=== PATIENT | female | born 1940 | race African-American/Black ===

== ENCOUNTER 2016-12-14 07:16 | Emergency (ER) | payer MEDICARE, OTHER ==
[2016-12-14 07:46] VITALS: TEMP 98.5; BMI 24.2
[2016-12-14] MEDS ORDERED: ACETAMINOPHEN 325 MG TABLET (FP) PO ONE (08:31)
[2016-12-14] MEDS ORDERED: ACETAMINOPHEN 325 MG TABLET (FP) ONE (08:36)
--- NOTE | 2016-12-14 08:54 | PDOC ---
History of Present Illness - General Chief Complaint: Headache Stated Complaint: HEAD PAIN Time Seen by Provider: 12/14/16 08:04 History Source: Patient Exam Limitations: No Limitations - History of Present Illness Initial Comments: 12/14/16 08:48 Patient is a 76F with history of NIDDM, HTN and cerebral aneurysm here today complaining of a headache for the past two weeks. The headache onset insidiously , slowly getting worse over the past two weeks. She describes the headache as pounding located at the top of her head. She denies light and sound sensitivity. She denies trauma, fevers, chills, nausea and vomiting. She has no chest pain, shortness of breath, abdominal pain or dysuria. She says that she hasn't had any episodes of confusion. She denies any weakness, focal or general. She reports compliance with her medications. She says that she was evaluated by her primary care doctor, who recommended a CTA. She took a paper saying she needed a CTA to radiology yesterday but was turned away because it was not a prescription. She then presented to the emergency department because her primary care office was closed yesterday. The paper she has says that she needs a CTA in the next 3 months. Past History - Past Medical History Allergies/Adverse Reactions: Allergies Allergy/AdvReac Type Severity Reaction Status Date / Time No Known Allergies Allergy Verified 12/14/16 07:46 Home Medications: Ambulatory Orders Atenolol [Tenormin -] 100 mg PO DAILY 07/27/15 Enalapril Maleate [Vasotec] 20 mg PO BID 07/27/15 Glipizide [Glucotrol -] 10 mg PO BID 07/27/15 Metformin HCl [Glucophage -] 500 mg PO BID 07/27/15 Simvastatin [Zocor -] 10 mg PO HS 07/27/15 Amlodipine Besylate [Norvasc -] 5 mg PO DAILY #30 tablet 07/31/15 Aspirin [ASA -] 81 mg PO DAILY #30 tab.chew 07/31/15 Meclizine HCl [Antivert -] 25 mg PO BID #20 tablet 07/31/15 Diabetes: Yes HTN: Yes Hypercholesterolemia: Yes Other medical history: cerebral aneurysm - Surgical History Abdominal Surgery: Yes - Suicide/Smoking/Psychosocial Hx Smoking History: Never smoked Hx Alcohol Use: No Drug/Substance Use Hx: No Substance Use Type: None Review of Systems - Review of Systems Comments:: 12/14/16 08:52 GENERAL/CONSTITUTIONAL: No fever or chills. No weakness. HEAD, EYES, EARS, NOSE AND THROAT: No change in vision. No sore throat. CARDIOVASCULAR: No chest pain or shortness of breath RESPIRATORY: No cough, wheezing, or hemoptysis. GASTROINTESTINAL: No nausea, vomiting, diarrhea or constipation. GENITOURINARY: No dysuria, frequency, or change in urination. MUSCULOSKELETAL: No joint or muscle swelling or pain. No neck or back pain. SKIN: No rash NEUROLOGIC: Positive for headahce. Negative for vertigo, loss of consciousness, or change in strength/sensation. HEMATOLOGIC/LYMPHATIC: No anemia, easy bleeding, or history of blood clots. ALLERGIC/IMMUNOLOGIC: No hives or skin allergy. *Physical Exam - Vital Signs Last Vital Signs Temp Pulse Resp BP Pulse Ox 98.5 F 83 18 148/75 100 12/14/16 07:25 12/14/16 07:25 12/14/16 07:25 12/14/16 07:25 12/14/16 07:25 - Physical Exam Comments: 12/14/16 08:53 GENERAL: Awake, alert, and fully oriented, in no acute distress HEAD: No signs of trauma, normocephalic, atraumatic EYES: PERRLA, EOMI, sclera anicteric, conjunctiva clear ENT: Auricles normal inspection, hearing grossly normal, nares patent, oropharynx clear without exudates. Moist mucosa NECK: Normal ROM, supple, no lymphadenopathy, JVD, or masses LUNGS: No distress, speaks full sentences, clear to auscultation bilaterally HEART: Regular rate and rhythm, normal S1 and S2, no murmurs, rubs or gallops, peripheral pulses normal and equal bilaterally. ABDOMEN: Soft, nontender, normoactive bowel sounds. No guarding, no rebound. No masses EXTREMITIES: Normal inspection, Normal range of motion, no edema. No clubbing or cyanosis. NEUROLOGICAL: Cranial nerves II through XII grossly intact. Normal speech, normal gait, no focal sensorimotor deficits. No cerebellar signs, no dysdiadochokinesia SKIN: Warm, Dry, normal turgor, no rashes or lesions noted. ED Treatment Course - LABORATORY CBC & Chemistry Diagram: 12/14/16 08:34 12/14/16 08:34 - RADIOLOGY Radiology Studies Ordered: Category Date Time Status HEAD CT WITHOUT CONTRAST [CT] Stat CT Scan 12/14/16 08:25 Ordered - Medications Given in the ED: ED Medications Discontinued Medications Generic Name Dose Route Start Last Admin Trade Name Everardo PRN Reason Stop Dose Admin Acetaminophen 650 mg 12/14/16 08:31 10 08:40 Tylenol - PO 12/14/16 08:32 650 mg ONCE ONE Administration Medical Decision Making - Medical Decision Making 12/14/16 08:54 Patient is a 76F with history of HTN, NIDDM, and Cerebral aneurysm here today complaining of headache. Vital signs stable and normal. History is not consistent with intracranial hemorrhage, full neuro exam is normal. Differential diagnosis includes, but is not limited to: primary headache, worsening cerebral aneurysm, occult trauma causing subdural hematoma. Will evaluate with labs, head ct, ekg. EKG shows first degree av block (WI =220), normal rate, normal axis. EKG shows diffusely flattened t waves. 12/14/16 09:52 Laboratory Tests 12/14/16 12/14/16 08:34 08:34 WBC 8.5 D Hgb 12.0 D Hct 36.5 Plt Count 344 D BUN 9 D Creatinine 0.9 Random Glucose 218 H cbc normal, cmp notable for elevated glucose, kidney function normal, sent to cta. 12/14/16 10:56 Laboratory Tests 12/14/16 08:34 INR 1.18 H INR slightly elevated, ua negative. 12/14/16 12:04 CTA shows stable aneurysm, progression of chronic microvascular changes. Patient 's headache has resolved with tylenol. Will discharge home with PCP follow up and return precautions. Patient is improved, alert and ambulatory at discharge. *DC/Admit/Observation/Transfer Diagnosis at time of Disposition: Headache - Discharge Dispostion Disposition: HOME Condition at time of disposition: Good Admit: No - Referrals Referrals: Marcin Vaca MD [Primary Care Provider] - - Patient Instructions Printed Discharge Instructions: DI for Headache Additional Instructions: I'm glad that you're feeling better. I've printed out a report of your CTA to give to your primary care provider. Please follow up with your primary care provider within 1-2 days concerning your headaches and take tylenol as needed for pain Return to the emergency department if you have any new, worsening, or concerning symptoms -Dr Shankar
--- NOTE | 2016-12-14 09:05 | PDOC ---
Attending Attestation - Resident Resident Name: Barrie Shankar - ED Attending Attestation I have performed the following: I have examined & evaluated the patient, The case was reviewed & discussed with the resident, I agree w/resident's findings & plan, Exceptions are as noted - HPI HPI: 12/14/16 08:58 76yo F hx NIDDM, HTN and cerebral aneurysm p/w 2 weeks of progressive, gradual onset headache. Reports throbbing pain on the top of her head. Patient saw her primary care doctor yesterday who wrote her a prescription for a CTA of her head. The patient reports she came to our radiology department yesterday but no one performed a CT study because she did not have the right prescription and so she presents to the emergency department this morning for a CTA. She denies any change in the quality or severity of the headache today. Reports similar headaches in the past, but none for this long. Denies any nausea, vomiting, visual changes, focal weakness or numbness. Denies chest pain, shortness of breath. Denies nausea, vomiting, diarrhea. Denies fevers or chills. - Physicial Exam PE: 12/14/16 09:38 GENERAL: Awake, alert, and fully oriented, in no acute distress HEAD: No signs of trauma EYES: PERRLA, EOMI, sclera anicteric, conjunctiva clear ENT: Auricles normal inspection, hearing grossly normal, nares patent, oropharynx clear without exudates. Moist mucosa NECK: Normal ROM, supple, no lymphadenopathy, JVD, or masses LUNGS: Breath sounds equal, clear to auscultation bilaterally. No wheezes, and no crackles HEART: Regular rate and rhythm, normal S1 and S2, no murmurs, rubs or gallops ABDOMEN: Soft, nontender, normoactive bowel sounds. No guarding, no rebound. No masses EXTREMITIES: Normal range of motion, no edema. No clubbing or cyanosis. No cords, erythema, or tenderness NEUROLOGICAL: Normal speech, cranial nerves intact, negative pronator drift, 5/ 5 strength in all 4 extremities, normal sensation to light touch in all 4 extremities, normal cerebellar exam, normal gait, normal reflexes and tone SKIN: Warm, Dry, normal turgor, no rashes or lesions noted. - Medical Decision Making 12/14/16 09:39 76-year-old female with a history of cerebral aneurysm presents with 2 weeks of progressive headache. Vitals and exam including neurologic exam within normal limits. Given the history of aneurysm, will obtain a CTA to ensure stability of the aneurysms as we have a CTA in our system from 2 years ago. Differential also includes tension headache versus migraine headache versus space occupying lesion. -labs -CTA -pain control -reassess 12/14/16 12:16 CTA stable. Headache greatly improved with tylenol. Pt very reassured to hear about stability of aneurysms on CTA. I discussed the physical exam findings, ancillary test results and final diagnoses with the patient. I answered all of the patient's questions. The patient was satisfied with the care received and felt comfortable with the discharge plan and treatment plan. The patient will call their primary care physician within 24 hours to arrange follow-up and will return to the Emergency Department with any new, persistent or worsening symptoms.
[2016-12-14 09:11] LABS: MCH 27.5 pg (25.7-33.7); MCHC 32.9 g/dl (32.0-36.0); MEAN CELL VOLUME 83.5 fl (80-96); MEAN PLT VOLUME 7.4 fl (7.5-11.1); PLATELET COUNT 344 K/MM3 (134-434); RDW 13.3 % (11.6-15.6); WHITE BLOOD COUNT 8.5 K/mm3 (4.0-10.0)
[2016-12-14 09:28] LABS: ALBUMIN 3.9 g/dl (3.4-5.0); ANION GAP 8 (8-16); BILIRUBIN,TOTAL 0.4 mg/dL (0.2-1.0); CALCIUM 9.2 mg/dL (8.5-10.1); CO2 26 mmol/L (21-32); CREATININE 0.9 mg/dL (0.55-1.02); GLUCOSE,RANDOM 218 mg/dL (74-106); SGOT/AST 15 U/L (15-37); SGPT/ALT 21 U/L (12-78); TOT PROT 7.7 g/dl (6.4-8.2)
[2016-12-14 09:29] LABS: ALK PHOS 77 U/L (45-117)
[2016-12-14 09:58] LABS: URINE APPEARANCE CLEAR; URINE BILIRUBIN NEGATIVE (NEGATIVE); URINE BLOOD NEGATIVE (NEGATIVE); URINE COLOR STRAW; URINE GLUCOSE (UA) NEGATIVE (NEGATIVE); URINE KETONE NEGATIVE (NEGATIVE); URINE NITRITE NEGATIVE (NEGATIVE); URINE PROTEIN NEGATIVE (NEGATIVE); URINE UROBILINOGEN NEGATIVE mg/dL (0.2-1.0)
[2016-12-14 10:06] LABS: INR 1.18 (0.82-1.09)
[2016-12-14 12:39] VITALS: BP 131/69; PULSE 80
[2016-12-14 14:59] LABS: URINE LEUK ESTERASE Negative (NEGATIVE)
--- NOTE | 2016-12-14 15:38 | EKG ---
Test Reason : Blood Pressure : / mmHG Vent. Rate : 075 BPM Atrial Rate : 075 BPM P-R Int : 218 ms QRS Dur : 084 ms QT Int : 372 ms P-R-T Axes : 055 017 -19 degrees QTc Int : 415 ms SINUS RHYTHM WITH 1ST DEGREE A-V BLOCK DIFFUSE NONSPECIFIC ST-T ABNORMALITIES IN INFEROLATERAL LEADS ABNORMAL ECG NO PREVIOUS ECGS AVAILABLE CLINICAL CORRELATION AND FOLLOW UP EKG INDCATED . Confirmed by KIMBERLY GONSALES MD ([id number]) on 12/14/2016 3:38:01 PM Referred By: Confirmed By:KIMBERLY GONSALES MD
== END 2016-12-14 12:39 | disposition home or self-care (01) ==
LOC: JER 07:16
DX: R51 Headache (principal); I10 Essential (primary) hypertension; E11.9 Type 2 diabetes mellitus without complications; Z86.79 Personal history of other diseases of the circulatory system; Z79.82 Long term (current) use of aspirin; Z79.84 Long term (current) use of oral hypoglycemic drugs
CPT/HCPCS: 36415; 70496-TC; 80053; 81003; 85027; 85610; 93005; 93010; 99283-25

== ENCOUNTER 2017-02-12 19:07 | Emergency (ER) | payer MEDICARE, OTHER ==
[2017-02-12 20:27] VITALS: BP 106/61; PULSE 71; TEMP 97.8; BMI 26.2
--- NOTE | 2017-02-12 20:37 | PDOC ---
History of Present Illness - General History Source: Patient Exam Limitations: No Limitations - History of Present Illness Initial Comments: 02/12/17 21:03 The patient is a 76 year old female with history of hypertension, hyperlipidemia , DM brought in by her son after ingesting a marijuana brownie this evening. Son reports weed brownies were given to him and his mother got into them. Subsequently the patient became altered and her son brought her to the ED for evaluation. No behavioral changes prior to ingesting weed brownie. No alcohol consumption tonight. Patient is altered and unable to provide remainder of history. <Yolie Brice - Last Filed: 02/12/17 21:03> <Delores Webb - Last Filed: 02/13/17 00:17> - General Chief Complaint: Substance Abuse Stated Complaint: SUBSTANCE ABUSE Time Seen by Provider: 02/12/17 20:25 Past History <Yolie Brice - Last Filed: 02/12/17 21:03> - Past Medical History Diabetes: Yes HTN: Yes Hypercholesterolemia: Yes - Surgical History Abdominal Surgery: Yes - Suicide/Smoking/Psychosocial Hx Smoking History: Never smoked Have you smoked in the past 12 months: No Information on smoking cessation initiated: No Hx Alcohol Use: No Drug/Substance Use Hx: No Substance Use Type: None <Delores Webb - Last Filed: 02/13/17 00:17> - Past Medical History Allergies/Adverse Reactions: Allergies Allergy/AdvReac Type Severity Reaction Status Date / Time No Known Allergies Allergy Verified 02/12/17 20:18 Home Medications: Ambulatory Orders Atenolol [Tenormin -] 100 mg PO DAILY 07/27/15 Enalapril Maleate [Vasotec] 20 mg PO BID 07/27/15 Glipizide [Glucotrol -] 10 mg PO BID 07/27/15 Metformin HCl [Glucophage -] 500 mg PO BID 07/27/15 Simvastatin [Zocor -] 10 mg PO HS 07/27/15 Amlodipine Besylate [Norvasc -] 5 mg PO DAILY #30 tablet 07/31/15 Aspirin [ASA -] 81 mg PO DAILY #30 tab.chew 07/31/15 Meclizine HCl [Antivert -] 25 mg PO BID #20 tablet 07/31/15 Review of Systems - Review of Systems Able to Perform ROS?: Yes Comments:: 02/12/17 21:05 Unable to obtain ROS secondary to AMS. <Yolie Brice - Last Filed: 02/12/17 21:03> *Physical Exam - Vital Signs Last Vital Signs Temp Pulse Resp BP Pulse Ox 97.8 F 71 18 106/61 97 02/12/17 20:00 02/12/17 20:00 02/12/17 20:00 02/12/17 20:00 02/12/17 20:00 - Physical Exam Comments: 02/12/17 21:05 Constitutional: Awake, not oriented. Responding to internal and external stimuli. Head: Normocephalic. Atraumatic Eyes: PERRL. EOMI. Conjunctivae are not pale. ENT: Mucous membranes are moist and intact. Posterior pharynx without exudates or erythema. Uvula midline. Neck: Supple. Full ROM. No lymphadenopathy. Cardiovascular: Regular rate. Regular rhythm. S1, S2 regular. Distal pulses are 2+ and symmetric. Pulmonary/Chest: No evidence of respiratory distress. Clear to auscultation bilaterally No wheezing, rales or rhonchi. Abdominal: Soft and non-distended. There is no tenderness. No rebound, guarding or rigidity. No organomegaly. No palpable masses. Good bowel sounds. Back: No CVA tenderness. Musculoskeletal: No edema. No cyanosis. No clubbing. Full range of motion in all extremities. Nocalf tenderness. Radial/pedal pulses are intact and 2+ bilaterally Skin: Skin is warm and dry. No petechiae. No purpura. Neurological: Responding to internal and external stimuli. Cranial nerves II- XII are grossly intact. No slurred speech. Strength is grossly symmetric. Psychiatric: Behavior as noted above. <Yolie Brice - Last Filed: 02/12/17 21:03> - Vital Signs Last Vital Signs Temp Pulse Resp BP Pulse Ox 97.8 F 71 18 106/61 97 02/12/17 20:00 02/12/17 20:00 02/12/17 20:00 02/12/17 20:00 02/12/17 20:00 <Delores Webb - Last Filed: 02/13/17 00:17> ED Treatment Course - LABORATORY CBC & Chemistry Diagram: 02/12/17 21:38 02/12/17 23:20 <Delores Webb - Last Filed: 02/13/17 00:17> Medical Decision Making - Medical Decision Making 02/12/17 20:36 a/p: 76yo female with ingestion of marijuana in brownie -now responding to external or internal stimuli -will check labs and monitor -drug screen 02/12/17 22:35 drug screen + marijuana 02/13/17 00:14 pt labs stable tolerated po intake in the ed drinking water drank water in the ED stable for d/c to home recommended avoiding brownies with marijuana in the future elevated glucose without anion gap <Delores Webb - Last Filed: 02/13/17 00:17> *DC/Admit/Observation/Transfer - Attestations Scribe Attestion: 02/12/17 21:07 Documentation prepared by oYlie Brice, acting as vice president medical affairs for Delores Webb DO. <Yolie Brice - Last Filed: 02/12/17 21:03> - Discharge Dispostion Admit: No - Attestations Physician Attestion: 02/13/17 00:17 I, Dr. Delores Webb, DO, attest that this document has been prepared under my direction and personally reviewed by me in its entirety. I further attest, that it accurately reflects all work, treatment, procedures and medical decision -making performed by me. <Delores Webb - Last Filed: 02/13/17 00:17> Diagnosis at time of Disposition: Marijuana use - Discharge Dispostion Disposition: HOME Condition at time of disposition: Stable - Referrals Referrals: Nirmala Kathleen [Primary Care Provider] - - Patient Instructions Printed Discharge Instructions: DI for Adverse Drug Reaction -- Other Additional Instructions: Please avoid marijuana in the future. Please make sure to take all your meds. Please increase your water intake and watch your sugars. Please make an appointment to follow up with your PMD in 1-2 days. Please return to the ED with any further concerns or complaints. - Post Discharge Activity
[2017-02-12 21:56] LABS: BASOPHIL 1.4 % (0-2.0); EOSINOPHIL 0.6 % (0-4.5); MCHC 33.4 g/dl (32.0-36.0); MEAN CELL VOLUME 83.6 fl (80-96); NEUTROPHILS 71.4 % (42.8-82.8); PLATELET COUNT 437 K/MM3 (134-434); RDW 13.8 % (11.6-15.6); URINE APPEARANCE CLEAR; URINE BILIRUBIN NEGATIVE (NEGATIVE); URINE BLOOD NEGATIVE (NEGATIVE); URINE COLOR LTYELLOW; URINE GLUCOSE (UA) 3+ (NEGATIVE); URINE KETONE NEGATIVE (NEGATIVE); URINE LEUK ESTERASE NEGATIVE (NEGATIVE); URINE NITRITE NEGATIVE (NEGATIVE); URINE PROTEIN NEGATIVE (NEGATIVE); URINE UROBILINOGEN 4.0 E.U/dl mg/dL (0.2-1.0); WHITE BLOOD COUNT 9.2 K/mm3 (4.0-10.0)
[2017-02-12 22:12] LABS: URINE MARIJUANA THC POSITIVE ng/ml (CUTOFF=50)
[2017-02-12 23:57] LABS: ALK PHOS 77 U/L (45-117); ANION GAP 9 (8-16); BILIRUBIN,TOTAL 0.3 mg/dL (0.2-1.0); CALCIUM 8.8 mg/dL (8.5-10.1); CO2 26 mmol/L (21-32); CREATININE 0.9 mg/dL (0.55-1.02); MAGNESIUM 1.9 mg/dL (1.8-2.4); SGOT/AST 12 U/L (15-37); SGPT/ALT 21 U/L (12-78); TOT PROT 7.4 g/dl (6.4-8.2)
[2017-02-13] LABS: GLUCOSE,RANDOM 337 mg/dL (74-106)
[2017-02-13 12:56] LABS: URINE LEUK ESTERASE Negative (NEGATIVE)
== END 2017-02-13 00:31 | disposition home or self-care (01) ==
LOC: JER 19:07
DX: F12.10 Cannabis abuse, uncomplicated (principal); I10 Essential (primary) hypertension; E78.5 Hyperlipidemia, unspecified; E11.9 Type 2 diabetes mellitus without complications; Z79.84 Long term (current) use of oral hypoglycemic drugs
CPT/HCPCS: 36415; 80053; 80307; 81003; 83735; 85025; 99281-25

== ENCOUNTER 2020-02-16 10:50 | Inpatient (IN) | payer MEDICARE, OTHER ==
[2020-02-16] MEDS ORDERED: LACTATED RINGERS SOLUTION 1,000 ML IV STA (11:30)
[2020-02-16] MEDS ORDERED: ACETAMINOPHEN 1000 MG/100 ML BAG IVPB ONE (11:30)
[2020-02-16] MEDS ORDERED: ACETAMINOPHEN INJECTION 100 ML IVPB ONE (11:37)
[2020-02-16 13:13] LABS: VENOUS BASE EXCESS -0.9 mmol/L (-2-2); VENOUS O2 SATURATION 40.1 % (70-80); VENOUS PCO2 48.4 mmHg (38-52); VENOUS PH 7.343 (7.310-7.410)
[2020-02-16 13:18] LABS: BASO % 0.5 % (0-2.0); EOS % 0.5 % (0-4.5); HEMATOCRIT 38.5 % (32.4-45.2); HEMOGLOBIN 12.6 GM/dL (10.7-15.3); LYMPH % 13.5 % (8-40); MCH 27.5 pg (25.7-33.7); MCHC 32.9 g/dl (32.0-36.0); MEAN CELL VOLUME 83.7 fl (80-96); MEAN PLT VOLUME 8.2 fl (7.5-11.1); MONO % 7.7 % (3.8-10.2); NEUT % 77.8 % (42.8-82.8); PLATELET COUNT 356 K/MM3 (134-434); RBC 4.59 M/mm3 (3.60-5.2); RDW 14.1 % (11.6-15.6); WHITE BLOOD COUNT 6.2 K/mm3 (4.0-10.0)
[2020-02-16 13:29] LABS: INR 1.15 (0.83-1.09); PROTHROMBIN TIME (PATIENT) 13.9 SEC (9.7-13.0)
[2020-02-16 13:42] LABS: CHLORIDE 100 mmol/L (98-107); SODIUM 133 mmol/L (136-145)
[2020-02-16 13:45] LABS: ALBUMIN 3.6 g/dl (3.4-5.0); ANION GAP 9 MMOL/L (8-16); BLOOD UREA NITROGEN 10.4 mg/dL (7-18); CALCIUM 8.7 mg/dL (8.5-10.1); CO2 24 mmol/L (21-32); GLUCOSE,RANDOM 174 mg/dL (74-106)
[2020-02-16 13:48] LABS: CREATININE 0.9 mg/dL (0.55-1.3); SGOT/AST 32 U/L (15-37); SGPT/ALT 27 U/L (13-61)
[2020-02-16 13:49] LABS: BILIRUBIN,DIRECT 0.3 mg/dL (0.0-0.2); BILIRUBIN,TOTAL 0.8 mg/dL (0.2-1); TOT PROT 7.7 g/dl (6.4-8.2)
[2020-02-16 13:50] LABS: ALK PHOS 73 U/L (45-117)
[2020-02-16 14:27] LABS: URINE APPEARANCE Clear; URINE BILIRUBIN Negative (NEGATIVE); URINE COLOR Yellow; URINE GLUCOSE (UA) Negative (NEGATIVE); URINE KETONE 1+ (NEGATIVE); URINE LEUK ESTERASE Negative (NEGATIVE); URINE NITRITE Negative (NEGATIVE); URINE PROTEIN 2+ (NEGATIVE); URINE UROBILINOGEN 0.2 mg/dL (0.2-1.0)
[2020-02-16] MEDS ORDERED: OSELTAMIVIR PHOSPHATE 75 MG CAPSULE PO ONE (14:40)
[2020-02-16 15:07] LABS: LDH 289 U/L (84-246)
[2020-02-16 16:15] LABS: EPI CELLS 51 /uL (0-25.1); HYALINE CASTS 4 /uL (0-3.1); URINE BACTERIA 21 /uL (0-1359); URINE RBC 3 /uL (0-23.9); URINE WBC 50 /uL (0-25.8)
[2020-02-16] MEDS ORDERED: FAMOTIDINE 20 MG TABLET PO ONE (16:29)
[2020-02-16] MEDS ORDERED: MAG HYDROX/AL HYDROX/SIMETH 30 ML UNIT-DOSE CUP PO ONE (16:30)
[2020-02-16] MEDS ORDERED: DEXAMETHASONE SOD PHOSPHATE 10 MG/1 ML VIAL IVPUSH ONE (16:32)
[2020-02-16] MEDS: INSULIN SLIDING SCALE (NOVOLOG) 1 VIAL SQ SCH (17:20)
[2020-02-16] MEDS: CEFTRIAXONE 1 GM in DEXTROSE 5%-WATER - 50 ML IVPB SCH (17:30)
[2020-02-16] MEDS: ENOXAPARIN NA (PORCINE) 40 MG/0.4 ML DISP.SYRIN SQ SCH (17:30)
[2020-02-16] MEDS ORDERED: FAMOTIDINE 20 MG TABLET ONE (17:32)
[2020-02-16] MEDS ORDERED: DEXAMETHASONE SOD PHOSPHATE 10 MG/1 ML VIAL ONE (17:32)
[2020-02-16] MEDS ORDERED: ENOXAPARIN NA (PORCINE) 40 MG/0.4 ML DISP.SYRIN SQ ONE (17:33)
[2020-02-16] MEDS ORDERED: CEFTRIAXONE 1 GM/50 ML BAG ONE (17:33)
[2020-02-16] MEDS ORDERED: AZITHROMYCIN IVPB 500 MG/250 ML BAG IVPB ONE (17:33)
[2020-02-16] MEDS ORDERED: MAG HYDROX/AL HYDROX/SIMETH 30 ML UNIT-DOSE CUP ONE (17:33)
[2020-02-16] MEDS: AZITHROMYCIN IVPB 500 MG/250 ML BAG IVPB SCH (18:00)
[2020-02-16] MEDS ORDERED: DOCUSATE SODIUM 100 MG CAPSULE (FP) PO PRN (22:09)
[2020-02-17] MEDS: INSULIN SLIDING SCALE (NOVOLOG) 1 VIAL SQ SCH ×5 (00:34→22:03)
[2020-02-17] MEDS ORDERED: ACETAMINOPHEN 325 MG TABLET (FP) PO PRN (04:05)
[2020-02-17 08:20] LABS: BASO % 0.7 % (0-2.0); HEMOGLOBIN 11.5 GM/dL (10.7-15.3); LYMPH % 24.3 % (8-40); MCH 27.3 pg (25.7-33.7); MCHC 32.9 g/dl (32.0-36.0); MEAN CELL VOLUME 82.8 fl (80-96); MONO % 8.1 % (3.8-10.2); NEUT % 66.9 % (42.8-82.8); PLATELET COUNT 379 K/MM3 (134-434); RBC 4.22 M/mm3 (3.60-5.2); RDW 13.6 % (11.6-15.6); WHITE BLOOD COUNT 3.1 K/mm3 (4.0-10.0)
[2020-02-17 08:29] LABS: INR 1.15 (0.83-1.09); PROTHROMBIN TIME (PATIENT) 14.1 SEC (9.7-13.0)
[2020-02-17 08:35] LABS: ALBUMIN 3.2 g/dl (3.4-5.0); BLOOD UREA NITROGEN 12.4 mg/dL (7-18); CALCIUM 8.5 mg/dL (8.5-10.1); MAGNESIUM 2.2 mg/dL (1.8-2.4)
[2020-02-17 08:38] LABS: CREATININE 0.8 mg/dL (0.55-1.3)
[2020-02-17 08:39] LABS: PHOSPHOROUS 2.9 mg/dL (2.5-4.9)
[2020-02-17 08:40] LABS: BILIRUBIN,TOTAL 0.5 mg/dL (0.2-1); TOT PROT 6.9 g/dl (6.4-8.2)
[2020-02-17 08:42] LABS: CHOLESTEROL 89 mg/dL (50-200)
[2020-02-17 08:43] LABS: LDL CHOLESTEROL (ONLY SJRH) 44 mg/dL (5-100); TRIGLYCERIDES 67 mg/dL (0-150)
[2020-02-17 08:46] LABS: HDL CHOLESTEROL 34 mg/dL (40-60)
[2020-02-17] MEDS ORDERED: ASCORBIC ACID 500 MG TABLET (FP) ONE (09:00)
[2020-02-17] MEDS ORDERED: CEFTRIAXONE 1 GM/50 ML BAG ONE (09:01)
[2020-02-17] MEDS ORDERED: DEXAMETHASONE SOD PHOSPHATE 4 MG/1 ML VIAL ONE (09:01)
[2020-02-17] MEDS ORDERED: ZINC SULFATE 220 MG CAPSULE (FP) ONE (09:01)
[2020-02-17] MEDS ORDERED: PANTOPRAZOLE 40 MG TABLET ONE (09:01)
[2020-02-17] MEDS ORDERED: ENOXAPARIN NA (PORCINE) 40 MG/0.4 ML DISP.SYRIN SQ ONE (09:01)
[2020-02-17] MEDS ORDERED: INSULIN SLIDING SCALE (NOVOLOG) 1 VIAL SQ ONE (09:02)
[2020-02-17] MEDS: ZINC SULFATE 220 MG CAPSULE (FP) PO SCH (09:28)
[2020-02-17] MEDS: ENOXAPARIN NA (PORCINE) 40 MG/0.4 ML DISP.SYRIN SQ SCH (09:28)
[2020-02-17] MEDS: ASCORBIC ACID 500 MG TABLET (FP) PO SCH ×2 (09:29→21:29)
[2020-02-17] MEDS: PANTOPRAZOLE 40 MG TABLET PO SCH (09:29)
[2020-02-17] MEDS: OSELTAMIVIR PHOSPHATE 30 MG CAPSULE PO SCH ×2 (09:29→21:29)
[2020-02-17] MEDS ORDERED: AZITHROMYCIN IVPB 500 MG/250 ML BAG IVPB ONE (09:30)
[2020-02-17] MEDS: CEFTRIAXONE 1 GM in DEXTROSE 5%-WATER - 50 ML IVPB SCH (09:40)
[2020-02-17] MEDS ORDERED: DEXAMETHASONE SOD PHOSPHATE 4 MG/1 ML VIAL IVPUSH SCH (10:00)
[2020-02-17] MEDS ORDERED: OSELTAMIVIR PHOSPHATE 75 MG CAPSULE PO SCH (10:00)
[2020-02-17 11:33] LABS: ANISOCYTOSIS 0; MACROCYTOSIS 0; PLATELET ESTIMATE NORMAL
[2020-02-17 12:21] VITALS: BMI 27.9
[2020-02-17] MEDS: AZITHROMYCIN IVPB 500 MG/250 ML BAG IVPB SCH (12:32)
[2020-02-17] MEDS ORDERED: REMDESIVIR 200 MG in SODIUM CHLORIDE 210 ML IVPB ONE (17:00)
[2020-02-17] MEDS: ATORVASTATIN CA 20 MG TABLET (FP) PO SCH (21:29)
[2020-02-17] MEDS: SENNOSIDES 8.6MG TABLET (FP) PO SCH (21:29)
[2020-02-17] MEDS ORDERED: SENNOSIDES 8.6MG TABLET (FP) PO SCH (22:00)
[2020-02-18] MEDS: INSULIN SLIDING SCALE (NOVOLOG) 1 VIAL SQ SCH ×5 (06:31→21:34)
[2020-02-18 08:49] LABS: HEMATOCRIT 35.4 % (32.4-45.2); HEMOGLOBIN 11.4 GM/dL (10.7-15.3); MCHC 32.2 g/dl (32.0-36.0); MEAN CELL VOLUME 83.7 fl (80-96); MEAN PLT VOLUME 7.7 fl (7.5-11.1); PLATELET COUNT 449 K/MM3 (134-434); RBC 4.23 M/mm3 (3.60-5.2); RDW 14.1 % (11.6-15.6); WHITE BLOOD COUNT 9.5 K/mm3 (4.0-10.0)
[2020-02-18 09:03] LABS: BLOOD UREA NITROGEN 13.1 mg/dL (7-18); CALCIUM 8.8 mg/dL (8.5-10.1)
[2020-02-18 09:07] LABS: CREATININE 0.8 mg/dL (0.55-1.3)
[2020-02-18] MEDS: PANTOPRAZOLE 40 MG TABLET PO SCH (09:53)
[2020-02-18] MEDS: OSELTAMIVIR PHOSPHATE 30 MG CAPSULE PO SCH ×2 (09:53→21:29)
[2020-02-18] MEDS: ZINC SULFATE 220 MG CAPSULE (FP) PO SCH (09:53)
[2020-02-18] MEDS: ENALAPRIL MALEATE 10 MG TABLET PO SCH (09:54)
[2020-02-18] MEDS: DEXAMETHASONE SOD PHOSPHATE 4 MG/1 ML VIAL IVPUSH SCH (09:54)
[2020-02-18] MEDS: ASCORBIC ACID 500 MG TABLET (FP) PO SCH ×2 (09:54→21:30)
[2020-02-18] MEDS: amLODIPine BESYLATE 10 MG TABLET (FP) PO SCH (09:54)
[2020-02-18 11:19] LABS: ERYTHROCYTE SEDIMENTATION RATE 17 mm/hr (0-30)
[2020-02-18] MEDS: ENOXAPARIN NA (PORCINE) 40 MG/0.4 ML DISP.SYRIN SQ SCH (11:30)
[2020-02-18] MEDS: REMDESIVIR 100 MG in SODIUM CHLORIDE 230 ML IVPB SCH (17:03)
[2020-02-18] MEDS: SENNOSIDES 8.6MG TABLET (FP) PO SCH (21:29)
[2020-02-18] MEDS: APIXABAN 5 MG TABLET PO SCH (21:29)
[2020-02-18] MEDS: ATORVASTATIN CA 20 MG TABLET (FP) PO SCH (21:30)
[2020-02-19] MEDS: INSULIN SLIDING SCALE (NOVOLOG) 1 VIAL SQ SCH ×4 (06:04→21:34)
[2020-02-19 06:50] LABS: HEMATOCRIT 33.1 % (32.4-45.2); MCH 27.7 pg (25.7-33.7); MCHC 33.3 g/dl (32.0-36.0); MEAN CELL VOLUME 83.4 fl (80-96); PLATELET COUNT 433 K/MM3 (134-434); RBC 3.96 M/mm3 (3.60-5.2); RDW 13.9 % (11.6-15.6); WHITE BLOOD COUNT 9.9 K/mm3 (4.0-10.0)
[2020-02-19 07:08] LABS: CALCIUM 8.5 mg/dL (8.5-10.1)
[2020-02-19 07:09] LABS: BLOOD UREA NITROGEN 19.8 mg/dL (7-18)
[2020-02-19 07:12] LABS: CREATININE 0.9 mg/dL (0.55-1.3)
[2020-02-19] MEDS: APIXABAN 5 MG TABLET PO SCH ×2 (09:37→21:22)
[2020-02-19] MEDS: OSELTAMIVIR PHOSPHATE 30 MG CAPSULE PO SCH ×2 (09:37→21:22)
[2020-02-19] MEDS: amLODIPine BESYLATE 10 MG TABLET (FP) PO SCH (09:38)
[2020-02-19] MEDS: DEXAMETHASONE SOD PHOSPHATE 4 MG/1 ML VIAL IVPUSH SCH (09:38)
[2020-02-19] MEDS: ENALAPRIL MALEATE 10 MG TABLET PO SCH (09:38)
[2020-02-19] MEDS: PANTOPRAZOLE 40 MG TABLET PO SCH (09:38)
[2020-02-19] MEDS: ZINC SULFATE 220 MG CAPSULE (FP) PO SCH (09:38)
[2020-02-19] MEDS: ASCORBIC ACID 500 MG TABLET (FP) PO SCH ×2 (09:38→21:22)
[2020-02-19] MEDS: REMDESIVIR 100 MG in SODIUM CHLORIDE 230 ML IVPB SCH (17:16)
[2020-02-19] MEDS ORDERED: INSULIN (LEVEMIR) 100 UNITS/ML UNITS SQ ONE (18:35)
[2020-02-19] MEDS: SENNOSIDES 8.6MG TABLET (FP) PO SCH (21:22)
[2020-02-19] MEDS: ATORVASTATIN CA 20 MG TABLET (FP) PO SCH (21:22)
[2020-02-19] MEDS: INSULIN (LEVEMIR) 100 UNITS/ML UNITS SQ SCH (21:48)
[2020-02-20] MEDS ORDERED: INSULIN (LEVEMIR) 100 UNITS/ML UNITS SQ ONE (00:30)
[2020-02-20] MEDS: INSULIN SLIDING SCALE (NOVOLOG) 1 VIAL SQ SCH ×4 (06:19→21:34)
[2020-02-20 09:35] LABS: BASO % 0.3 % (0-2.0); HEMATOCRIT 35.4 % (32.4-45.2); HEMOGLOBIN 11.9 GM/dL (10.7-15.3); LYMPH % 16.2 % (8-40); MCH 27.8 pg (25.7-33.7); MCHC 33.5 g/dl (32.0-36.0); MEAN CELL VOLUME 83.1 fl (80-96); MEAN PLT VOLUME 7.7 fl (7.5-11.1); MONO % 8.6 % (3.8-10.2); NEUT % 74.9 % (42.8-82.8); PLATELET COUNT 519 K/MM3 (134-434); RBC 4.26 M/mm3 (3.60-5.2); RDW 13.8 % (11.6-15.6); WHITE BLOOD COUNT 10.7 K/mm3 (4.0-10.0)
[2020-02-20] MEDS: DEXAMETHASONE SOD PHOSPHATE 4 MG/1 ML VIAL IVPUSH SCH (09:59)
[2020-02-20 10:00] LABS: ALBUMIN 3.5 g/dl (3.4-5.0); BLOOD UREA NITROGEN 19.6 mg/dL (7-18); MAGNESIUM 2.3 mg/dL (1.8-2.4)
[2020-02-20] MEDS: ENALAPRIL MALEATE 10 MG TABLET PO SCH (10:00)
[2020-02-20] MEDS: OSELTAMIVIR PHOSPHATE 30 MG CAPSULE PO SCH ×2 (10:00→21:21)
[2020-02-20] MEDS: amLODIPine BESYLATE 10 MG TABLET (FP) PO SCH (10:00)
[2020-02-20] MEDS: APIXABAN 5 MG TABLET PO SCH ×2 (10:00→21:21)
[2020-02-20] MEDS: ZINC SULFATE 220 MG CAPSULE (FP) PO SCH (10:00)
[2020-02-20] MEDS: PANTOPRAZOLE 40 MG TABLET PO SCH (10:00)
[2020-02-20 10:01] LABS: CALCIUM 8.7 mg/dL (8.5-10.1)
[2020-02-20] MEDS: ASCORBIC ACID 500 MG TABLET (FP) PO SCH ×2 (10:01→21:21)
[2020-02-20 10:03] LABS: CREATININE 0.8 mg/dL (0.55-1.3)
[2020-02-20 10:04] LABS: BILIRUBIN,TOTAL 0.5 mg/dL (0.2-1); TOT PROT 7.4 g/dl (6.4-8.2)
[2020-02-20] MEDS ORDERED: INSULIN (NOVOLOG) ASPART 100 UNITS/ML 10ML VIAL ONE ×2 (11:22→17:58)
[2020-02-20] MEDS: REMDESIVIR 100 MG in SODIUM CHLORIDE 230 ML IVPB SCH (16:25)
[2020-02-20] MEDS ORDERED: INSULIN (NOVOLOG) ASPART 100 UNITS/ML 10ML VIAL SQ ONE (20:45)
[2020-02-20] MEDS: SENNOSIDES 8.6MG TABLET (FP) PO SCH (21:20)
[2020-02-20] MEDS: ATORVASTATIN CA 20 MG TABLET (FP) PO SCH (21:21)
[2020-02-20] MEDS: INSULIN (LEVEMIR) 100 UNITS/ML UNITS SQ SCH (21:21)
[2020-02-21] MEDS: INSULIN SLIDING SCALE (NOVOLOG) 1 VIAL SQ SCH ×4 (06:17→23:42)
[2020-02-21] MEDS ORDERED: INSULIN (NOVOLOG) ASPART 100 UNITS/ML 10ML VIAL SQ ONE ×2 (07:00→20:05)
[2020-02-21] MEDS ORDERED: PT OWN MED DRAWER 7, Y5N ONE (09:13)
[2020-02-21] MEDS: amLODIPine BESYLATE 10 MG TABLET (FP) PO SCH (09:31)
[2020-02-21] MEDS: PANTOPRAZOLE 40 MG TABLET PO SCH (09:31)
[2020-02-21] MEDS: OSELTAMIVIR PHOSPHATE 30 MG CAPSULE PO SCH (09:31)
[2020-02-21] MEDS: ENALAPRIL MALEATE 10 MG TABLET PO SCH (09:31)
[2020-02-21] MEDS: ASCORBIC ACID 500 MG TABLET (FP) PO SCH ×2 (09:31→21:58)
[2020-02-21] MEDS: ZINC SULFATE 220 MG CAPSULE (FP) PO SCH (09:31)
[2020-02-21] MEDS: APIXABAN 5 MG TABLET PO SCH ×2 (09:32→21:58)
[2020-02-21] MEDS ORDERED: REMDESIVIR 100 MG in SODIUM CHLORIDE 230 ML IVPB SCH (15:00)
[2020-02-21] MEDS ORDERED: metFORMIN HCL 500 MG TABLET (FP) PO ONE (18:17)
[2020-02-21] MEDS: sitaGLIPtin PHOSPHATE 50 MG TABLET PO SCH (18:38)
[2020-02-21] MEDS ORDERED: INSULIN (LEVEMIR) 100 UNITS/ML UNITS SQ SCH (20:00)
[2020-02-21] MEDS ORDERED: INSULIN (LEVEMIR) 100 UNITS/ML UNITS SQ ONE (20:10)
[2020-02-21] MEDS: ATORVASTATIN CA 20 MG TABLET (FP) PO SCH (21:58)
[2020-02-21] MEDS: SENNOSIDES 8.6MG TABLET (FP) PO SCH (21:58)
[2020-02-22] MEDS: sitaGLIPtin PHOSPHATE 50 MG TABLET PO SCH (06:13)
[2020-02-22] MEDS: INSULIN SLIDING SCALE (NOVOLOG) 1 VIAL SQ SCH ×2 (06:13→11:13)
[2020-02-22] MEDS ORDERED: glipiZIDE 10 MG TABLET (FP) PO SCH (07:00)
[2020-02-22] MEDS ORDERED: metFORMIN HCL 500 MG TABLET (FP) PO SCH (07:00)
[2020-02-22] MEDS ORDERED: PT OWN MED DRAWER 7, Y5N ONE (10:14)
[2020-02-22] MEDS: ASCORBIC ACID 500 MG TABLET (FP) PO SCH (10:20)
[2020-02-22] MEDS: ENALAPRIL MALEATE 10 MG TABLET PO SCH (10:20)
[2020-02-22] MEDS: amLODIPine BESYLATE 10 MG TABLET (FP) PO SCH (10:20)
[2020-02-22] MEDS: APIXABAN 5 MG TABLET PO SCH (10:20)
[2020-02-22] MEDS: ZINC SULFATE 220 MG CAPSULE (FP) PO SCH (10:20)
[2020-02-22] MEDS: PANTOPRAZOLE 40 MG TABLET PO SCH (10:20)
[2020-02-22 11:30] VITALS: BP 118/89; PULSE 103; TEMP 98.5
== END 2020-02-22 13:23 | disposition home or self-care (01) | DRG 177 ==
LOC: JER 10:50 → JERBED 15:19 → J8W 02-17 10:40
PROVIDERS: ADMIT Family Medicine; ATTEND Internal Medicine
PROC: XW13325 Transfusion of Convalescent Plasma (Nonautologous) into Peripheral Vein, Percutaneous Approach, New Technology Group 5 (ICD-10-PCS; principal; 2020-02-17)
PROC: XW033E5 Introduction of Remdesivir Anti-infective into Peripheral Vein, Percutaneous Approach, New Technology Group 5 (ICD-10-PCS; 2020-02-17)
DX: U07.1 COVID-19 (principal); J12.89 Other viral pneumonia; J10.1 Influenza due to other identified influenza virus with other respiratory manifestations; E11.9 Type 2 diabetes mellitus without complications; I10 Essential (primary) hypertension; E78.5 Hyperlipidemia, unspecified; Z79.84 Long term (current) use of oral hypoglycemic drugs; K59.00 Constipation, unspecified; I67.1 Cerebral aneurysm, nonruptured; H40.9 Unspecified glaucoma; M41.9 Scoliosis, unspecified
CPT/HCPCS: 36415; 36430; 71045-TC-FY; 80048; 80053; 80061; 81003; 82248; 82550; 82728; 82803; 82947; 82962; 83036; 83605; 83615; 83721; 83735; 84100; 84443; 84484; 85025; 85027; 85379; 85610; 85651; 85730; 86140; 86850; 86900; 86901; 87040; 87086; 87804; 93005; 93010; 99285-25; C9399; C9803; J0131; J1100; P9017; U0003